=== PATIENT | male | born 1970 | race Caucasian/White ===

== ENCOUNTER 2019-12-13 05:18 | Emergency (ER) | payer BC ==
[~2019-12-13] VITALS: Ht 185.4 cm; Wt 118.2 kg
[2019-12-13] MEDS ORDERED: acetaminophen 325mg tablet PO ONE (05:45)
[2019-12-13] MEDS ORDERED: gabapentin 400mg capsule PO ONE (05:45)
[2019-12-13] MEDS ORDERED: ketorolac trometh inj. 60 MG/2 ML VIAL IM ONE (05:45)
[2019-12-13] MEDS ORDERED: HYDROcodone/acetaminophen 10/325mg tab PO ONE (05:45)
[2019-12-13] MEDS ORDERED: ondansetron 4mg rapidly disintigrating tab PO ONE (05:45)
[2019-12-13] MEDS ORDERED: LIDOcaine 5% patch TP ONE (05:45)
[2019-12-13] MEDS ORDERED: aspirin 325mg tablet PO ONE (05:45)
[2019-12-13] MEDS ORDERED: HYDR-3965 PO (05:50)
[2019-12-13] MEDS ORDERED: LIDO700A32 TOP (05:50)
[2019-12-13] MEDS ORDERED: ACET-812 PO (05:50)
[2019-12-13 06:29] VITALS: BP 156/100
== END 2019-12-13 06:31 | disposition home or self-care (01) ==
LOC: ER 05:19
DX: M54.41 Lumbago with sciatica, right side (principal); Z88.5 Allergy status to narcotic agent
CPT/HCPCS: 96372; 99284; J1885